=== PATIENT | male | born 2000 | race African-American/Black ===

== ENCOUNTER 2020-05-16 20:53 | Emergency (ER) | payer OTHER ==
[2020-05-16] MEDS ORDERED: ACETAMINOPHEN 325 MG TABLET PO ONE (21:03)
--- NOTE | 2020-05-16 21:05 | ER Document Report ---
ED Medical Screen (RME) - General Chief Complaint: Fever Stated Complaint: FEVER,CHEST TIGHTNESS,COUGH Time Seen by Provider: 05/16/20 21:02 Mode of Arrival: Ambulatory Information source: Patient Notes: 19-year-old male presented to ED for cough cold congestion body aches fever for the last 2 days. He states he also has a loss of sense of smell and thinks he has the Covid. He states he has been hurting so much that he cannot sleep for the last 2 days. He is alert oriented respirations regular nonlabored speaking in full sentences. He states he does have a tightness to his chest he is able to take a breath but it just feels tight all the time. The patient was evaluated during the global Covid 19 pandemic, and that diagnosis was suspected/considered upon their initial presentation. Their evaluation, treatment and testing was consistent with current guidelines for patients who present with complaints or symptoms that may be related to Covid 19. I have greeted and performed a rapid initial assessment of this patient. A comprehensive ED assessment and evaluation of the patient, analysis of test results and completion of medical decision making process will be conducted by an additional ED providers. Physical Exam - Vital signs Vitals: Temp Pulse Resp BP Pulse Ox 101.8 F H 93 H 18 132/70 H 99 05/16/20 20:59 05/16/20 20:59 05/16/20 20:59 05/16/20 20:59 05/16/20 20:59 Course - Vital Signs Vital signs: Temp Pulse Resp BP Pulse Ox 101.8 F H 93 H 18 132/70 H 99 05/16/20 20:59 05/16/20 20:59 05/16/20 20:59 05/16/20 20:59 05/16/20 20:59
[2020-05-16 22:06] LABS: ALBUMIN 4.7 g/dL (3.7-5.6); ALKALINE PHOSPHATASE 128 U/L (65-260); ANION GAP 9 (5-19); ASPARTATE AMINO TRANSFERASE 32 U/L (10-45); BLOOD UREA NITROGEN 13 mg/dL (7-20); CALCIUM 10.1 mg/dL (8.4-10.2); CARBON DIOXIDE 30 mmol/L (22-30); CHLORIDE 98 mmol/L (98-107); GLUCOSE 112 mg/dL (75-110); POTASSIUM 3.7 mmol/L (3.6-5.0); TOTAL PROTEIN 8.2 g/dL (6.3-8.2)
[2020-05-16 22:07] LABS: A TYPE INFLUENZA AG NEGATIVE (NEGATIVE); B INFLUENZA AG NEGATIVE (NEGATIVE)
--- NOTE | 2020-05-16 22:20 | RADIOLOGY REPORT (SQ) ---
AP Portable chest: 05/16/2020 9:19 PM TEACHING FELLOW History: 19-year old patient with fever, cough, congestion. Comparison: None available Findings: The cardiomediastinal silhouette is normal in size. No pneumothorax is seen. No acute airspace opacities are seen. No discrete pleural effusion is apparent. Impression: No acute airspace opacities are seen.
[2020-05-16 22:30] LABS: HEMOGLOBIN 14.1 g/dL (13.5-17.0); MEAN CORPUSCULAR HEMOGLOBIN 25.9 pg (27.0-33.4); MEAN CORPUSCULAR HGB CONC 32.9 g/dL (32.0-36.0); MEAN CORPUSCULAR VOLUME 79 fl (80-97); PLATELET COUNT 198 10^3/uL (150-450); RED BLOOD COUNT 5.45 10^6/uL (4.35-5.55); RED CELL DISTRIBUTION WIDTH 13.7 % (11.5-14.0)
[2020-05-16 22:56] LABS: ABSOLUTE LYMPHOCYTES# (MANUAL) 0.5 10^3/uL (0.5-4.7); ABSOLUTE MONOCYTES # (MANUAL) 0.7 10^3/uL (0.1-1.4); BASOPHILS % (MANUAL) 0 % (0-2); EOSINOPHILS % (MANUAL) 0 % (0-6); LYMPHOCYTES % (MANUAL) 9 % (13-45); MONOCYTES % (MANUAL) 14 % (3-13); SEGMENTED NEUTROPHILS % (MAN) 77 % (42-78); TOTAL CELLS COUNTED 100
[2020-05-16 22:57] LABS: OVALOCYTES SLIGHT; PLATELET COMMENT ADEQUATE; POIKILOCYTOSIS SLIGHT; ROULEAUX SLIGHT; TOXIC GRANULATION SLIGHT; TOXIC VACUOLATION PRESENT
--- NOTE | 2020-05-16 23:20 | ER Document Report ---
ED General - General Chief Complaint: Fever Stated Complaint: FEVER,CHEST TIGHTNESS,COUGH Time Seen by Provider: 05/16/20 21:02 Mode of Arrival: Ambulatory - [facility] Notes: 19-year-old male to the emergency department with complaints of 2 days of fever, body aches, cough, shortness of breath, loss of taste and smell, sore throat. He has not taken anything for his symptoms. He states that he does not think he has had any COVID-19 exposures; however, he did spend Thanksgiving with several friends. He states none of his friends have been symptomatic. He is a marine. He states that he is unsure if any of his work colleagues have tested positive for Covid. He is a non-smoker. The patient was evaluated during the global COVID 19 pandemic, and that diagnosis [facility]. Their evaluation, treatment, and testing was consistent with current guidelines for patients who present with complaints or symptoms that may be related to COVID-19. - Related Data Allergies/Adverse Reactions: No Known Allergies Allergy (Unverified 05/16/20 21:38) Past Medical History - General Information source: Patient - Social History Smoking Status: Never Smoker Chew tobacco use (# tins/day): No Frequency of alcohol use: Social Drug Abuse: None Family History: Reviewed & Not Pertinent Review of Systems - Review of Systems Constitutional: Chills, Fever EENT: Throat pain Cardiovascular: denies: Chest pain, Palpitations, Heart racing, Syncope, Dizziness, Lightheaded Respiratory: Cough, Short of breath Gastrointestinal: Nausea. denies: Abdominal pain, Diarrhea, Vomiting Genitourinary: No symptoms reported Musculoskeletal: Muscle pain - Body aches Skin: No symptoms reported Hematologic/Lymphatic: No symptoms reported Neurological/Psychological: No symptoms reported -: Yes All other systems reviewed and negative Physical Exam - Vital signs Vitals: Temp Pulse Resp BP Pulse Ox 101.8 F H 93 H 18 132/70 H 99 05/16/20 20:59 05/16/20 20:59 05/16/20 20:59 05/16/20 20:59 05/16/20 20:59 Interpretation: Febrile - Notes Notes: PHYSICAL EXAMINATION: GENERAL: Well-appearing, well-nourished and in no acute distress. Patient has received Tylenol since he arrived he states he is feeling much better. HEAD: Atraumatic, normocephalic. EYES: Pupils equal round and reactive to light, extraocular movements intact, sclera anicteric, conjunctiva are normal. ENT: nares patent, oropharynx clear without exudates. Moist mucous membranes. TMs clear bilaterally NECK: Normal range of motion, supple without lymphadenopathy. No nuchal rigidity LUNGS: Breath sounds clear to auscultation bilaterally and equal. No wheezes rales or rhonchi. No respiratory distress. No accessory muscle use. HEART: Regular rate and rhythm without murmurs ABDOMEN: Soft, nontender, normoactive bowel sounds. No guarding, no rebound. No masses appreciated. No CVA tenderness EXTREMITIES: Normal range of motion, no pitting or edema. No cyanosis. NEUROLOGICAL: No focal neurological deficits. Moves all extremities spontaneously and on command. PSYCH: Normal mood, normal affect. SKIN: Warm, Dry, normal turgor, no rashes or lesions noted. Course - Re-evaluation Re-evalutation: Impression: Viral upper respiratory syndrome that is highly suggestive of COVID- 19. He has had loss of smell and taste and he has had flulike symptoms. He is negative for influenza AMB. Group strep is negative and his chest x-ray is negative. He has significantly improved since his fevers been controlled. He states he feels a lot better. I encouraged him to alternate between Tylenol Motrin. We will also send home with some cough medicine. Also encouraged to return if he has worsening symptoms. Patient agrees with the plan. As a person under investigation for COVID-19, [facility], division of public health advises you to adhere to the following guidance until your test results are reported to you. If your test result is positive, you will receive additional information from your provider and your local health department at that time. Remain at home until you are cleared by the healthcare provider public health authorities. Keep a log of visitors to your home and notify any visitors to your home of your isolation status. If you plan to move to a new address or leave the country, notify the local health department and your County. Call your doctor or seek care if you have an urgent medical need. Before seeking medical care, call ahead to get instructions from the provider before arriving at the medical office, clinic, or hospital. Notify them that you are being tested for the virus that causes COVID-19 so that arrangements can be made, as necessary, to prevent transmission to others in the healthcare setting. Next, notify the local health department and your County. If a medical emergency arises and you need to call 911, informed the first responders that you are being tested for the virus that causes COVID-19. Next, notified the local health department and your County. - Vital Signs Vital signs: Temp Pulse Resp BP Pulse Ox 98.1 F 75 18 111/67 100 05/17/20 00:30 05/17/20 00:30 05/17/20 00:30 05/17/20 00:30 05/17/20 00:30 - Laboratory Result Diagrams: 05/16/20 21:22 05/16/20 21:22 Laboratory results interpreted by me: 05/16/20 05/16/20 21:22 21:22 MCV 79 L MCH 25.9 L Lymphocytes % (Manual) 9 L Monocytes % (Manual) 14 H Glucose 112 H - Diagnostic Test Radiology reviewed: Image reviewed, Reports reviewed Discharge - Discharge Clinical Impression: Suspected COVID-19 virus infection, Fever, Generalized body aches, Cough, Loss of smell Condition: Stable Disposition: HOME, SELF-CARE Instructions: COVID-19 Guidance for Persons Under Investigation, Fever ([facility]) Additional Instructions: Alternate between Tylenol and Motrin for fever control. Please quarantine for the next 2 weeks. Your Covid results should return in the next 3 to 5 days. You need to wear a mask and isolate yourself from others. Return if you have worsening symptoms such as worsening shortness of breath, intractable vomiting, or any other worsening symptoms. [place] As a person under investigation for COVID-19, [facility], division of public health advises you to adhere to the following guidance until your test results are reported to you. If your test result is positive, you will receive additional information from your provider and your local health department at that time. Remain at home until you are cleared by the healthcare provider public health authorities. Keep a log of visitors to your home and notify any visitors to your home of your isolation status. If you plan to move to a new address or leave the country, notify the local health department and your County. Call your doctor or seek care if you have an urgent medical need. Before seeking medical care, call ahead to get instructions from the provider before arriving at the medical office, clinic, or hospital. Notify them that you are being tested for the virus that causes COVID-19 so that arrangements can be made, as necessary, to prevent transmission to others in the healthcare setting. Next, notify the local health department and your County. If a medical emergency arises and you need to call 911, informed the first responders that you are being tested for the virus that causes COVID-19. Next, notified the local health department and your County. Prescriptions: Ibuprofen [Motrin 600 mg Tablet] 600 mg PO Q8HP PRN #24 tablet PRN Reason: Albuterol Sulfate [Proair HFA Inhalation Aerosol 8.5 gm MDI] 2 puff IH Q4H PRN #1 mdi PRN Reason: Forms: Return to Work
[2020-05-16] MEDS ORDERED: IBUPROFEN 600 MG TABLET PO ONE (23:56)
[2020-05-17 00:32] VITALS: BP 111/67
== END 2020-05-17 00:32 | disposition home or self-care (01) ==
LOC: ER 20:53
DX: U07.1 COVID-19 (principal)
CPT/HCPCS: 99284; 36415; 87070; 87880; 85025; 87635; 80053; 87804; 71045; C9803